=== PATIENT | female | born 1955 | race Two or more races ===

== ENCOUNTER → 2019-02-14 | Outpatient (CLI) | payer MEDICAID, MEDICARE ==
[2019-02-14 12:42] LABS: Basophils # (auto) 0 uL; Basophils % (auto) 0.5 % (0.0-2.0); Eosinophils # (auto) 0.2 uL; Hematocrit 38.2 % (36.0-46.0); Hemoglobin 12.8 g/dL (12.2-16.2); Lymphocytes # (auto) 2.9 uL; Lymphocytes % (auto) 47.6 % (10.0-50.0); Mean Corpuscular Hemoglobin 28.9 pg (28.0-32.0); Mean Corpuscular Hgb Conc. 33.4 g/dL (32.0-36.0); Mean Corpuscular Volume 86.6 fL (80.0-100.0); Monocytes # (auto) 0.4 uL; Monocytes % (auto) 5.8 % (0.0-12.0); Neutrophils # (auto) 2.6 uL; Neutrophils % (auto) 42.1 % (37.0-80.0); Nucleated Red Blood Cells % 0.1 %; Platelet Count (auto) 269 10^3/uL (140-450); Red Blood Cells 4.42 10^6/uL (4.0-5.20); White Blood Cell 6.1 10^3/uL (4.4-10.8)
[2019-02-14 13:00] LABS: Urine Bacteria FEW /hpf (None Seen); Urine Blood Negative /uL (Negative); Urine Mucus FEW (None Seen); Urine Specific Gravity 1.026 (1.001-1.035); Urine WBC 5 /hpf (0 - 5)
[2019-02-14 13:31] LABS: Albumin 3.6 g/dL (3.4-5.0); Potassium 3.8 mmol/L (3.5-5.1)
[2019-02-14 13:38] LABS: BUN/Creatinine Ratio 19.2; Bilirubin, Total 0.4 mg/dL (0.2-1.0); Calcium 8.9 mg/dL (8.5-10.1); Total Protein 7.4 g/dL (6.4-8.2)
== END | disposition home or self-care (01) ==
LOC: LAB 11:41
PROVIDERS: ATTEND Internal Medicine Nephrology
DX: I10 Essential (primary) hypertension (principal); G56.00 Carpal tunnel syndrome, unspecified upper limb; R79.89 Other specified abnormal findings of blood chemistry
CPT/HCPCS: 36415; 80053; 80061; 81001; 83036; 84439; 84443; 85025; 85652

== ENCOUNTER 2023-02-10 13:27 | Emergency (ER) | payer MEDICARE, MEDICAID ==
[~2023-02-10] VITALS: Ht 162.6 cm; Wt 92.4 kg
[2023-02-10 13:41] VITALS: BP 128/70; PULSE 74; RESP 18; TEMP 97.6; O2SAT 97
[2023-02-10 15:22] LABS: Basophils # (auto) 0 10 ^3/uL (0-0.2); Basophils % (auto) 0.4 % (0.0-2.0); Eosinophils # (auto) 0.2 10 ^3/uL (0-0.8); Eosinophils % (auto) 1.9 % (0.0-7.0); Hematocrit 42.3 % (36.0-46.0); Hemoglobin 13.8 g/dL (12.2-16.2); Lymphocytes % (auto) 30.8 % (10.0-50.0); Mean Corpuscular Hgb Conc. 32.7 g/dL (32.0-36.0); Mean Corpuscular Volume 85.7 fL (80.0-100.0); Monocytes # (auto) 0.5 10 ^3/uL (0-1.3); Neutrophils # (auto) 5.9 10 ^3/uL (1.6-8.6); Neutrophils % (auto) 61.9 % (37.0-80.0); Red Blood Cells 4.93 10^6/uL (4.0-5.20); Red Cell Distribution Width 16.7 % (11.8-14.3); White Blood Cell 9.6 10^3/uL (4.4-10.8)
[2023-02-10 15:40] LABS: Alanine Aminotransferase 15 U/L (7-40); Albumin 4.6 g/dL (3.2-4.8); Alkaline Phosphatase 104 U/L (46-116); Anion Gap 6.7 (5-15); Aspartate Aminotransferase 11 U/L (13-40); BUN/Creatinine Ratio 15.2 (10.0-20.0); Blood Urea Nitrogen 12 mg/dL (9-23); Calcium 9.9 mg/dL (8.5-10.1); Carbon Dioxide 24.3 mmol/L (20-30); Chloride 108 mmol/L (98-107); Glucose 101 mg/dL (74-106); Potassium 4.4 mmol/L (3.5-5.1); Sodium 139 mmol/L (136-145)
[2023-02-10 15:41] LABS: Bilirubin, Total 0.5 mg/dL (0.2-1.0); Total Protein 7.8 g/dL (5.7-8.2)
[2023-02-10] MEDS ORDERED: DexAMETHasone SOD PHOS 10MG/1ML VIAL INJ IM ONE (16:00)
[2023-02-10] MEDS ORDERED: GABA-1308 PO (16:00)
== END 2023-02-10 16:17 | disposition home or self-care (01) ==
LOC: ER 13:27
DX: S86.912A Strain of unspecified muscle(s) and tendon(s) at lower leg level, left leg, initial encounter (principal); I10 Essential (primary) hypertension; E78.5 Hyperlipidemia, unspecified; X58.XXXA Exposure to other specified factors, initial encounter; Y93.89 Activity, other specified; Y92.89 Other specified places as the place of occurrence of the external cause; Y99.8 Other external cause status
CPT/HCPCS: 36415; 80053; 83735; 85025; 93971; 96372; 99285; J1100

== ENCOUNTER 2024-04-26 07:00 | Inpatient (IN) | payer MEDICARE, MEDICAID ==
[~2024-04-26] VITALS: Ht 162.6 cm; Wt 93.2 kg
[~2024-04-26 07:00] MED LIST: GABA-1308 PO
--- NOTE | 2024-04-26 07:36 | ED.PDOC ---
History of Present Illness HPI Comments 68Y F with PMHx HTN and HLD presents to ED for chief complaint n/v/d x3days. Additional symptoms include epigastric abd pain, cough, fever, and poor appetite. Last emesis episode was 1hr ago and color was yellow. Pt states family at home were sick recently. Pt denies alcohol, tobacco, and illicit drug use. Pt was last seen at [facility] ER on 02/10/2023 for dx muscle strain, records reviewed. Time Seen by MD: 07:26 Primary Care Provider: Ander Reviewed Notes: Medications, Allergies Allergies: Coded Allergies: No Known Drug Allergy (Verified Allergy, Unknown, 02/10/23) Home Meds Active Scripts Gabapentin (Gabapentin) 100 Mg Cap, 1 CAP PO BID PRN for 10 Days, #30 CAP 0 Refills Prov:KATT SULLIVAN NP 02/10/23 Information Source: Patient Mode of Arrival: Ambulatory Severity: Moderate Timing: Days Duration: Since onset Past Medical History PAST MEDICAL HISTORY: High Lipids, HTN Surgical History: Denies all surgeries [employer]ESS[employer]INE[employer] History: Denies all [employer]INE[employer] Hx Family History Family History: Reviewed,noncontributory to illness Social History Smoker: Non-Smoker Alcohol: Denies ETOH Use Drugs: Denies Drug Use Lives In: Home Constitutional: reports: fever; denies: chills, diaphoresis, fatigue, malaise, sweats, weakness, others EENTM: denies: blurred vision, double vision, ear bleeding, ear discharge, ear drainage, ear pain, ear ringing, eye pain, eye redness, hearing loss, mouth pain, mouth swelling, nasal discharge, nose bleeding, nose congestion, nose pain, photophobia, tearing, throat pain, throat swelling, voice changes, others Respiratory: reports: cough; denies: hemoptysis, orthopnea, SOB at rest, shortness of breath, SOB with excertion, stridor, wheezing, others Cardiovascular: denies: chest pain, dizzy spells, diaphoresis, Dyspnea on exertion, edema, irregular heart beat, left arm pain, lightheadedness, palpitations, PND, syncope, others Gastrointestinal: reports: abdominal pain, diarrhea, nausea, poor appetite, vomiting; denies: abdomen distended, blood streaked bowels, constipated, dysphagia, difficulty swallowing, hematemesis, melena, poor fluid intake, rectal bleeding, rectal pain, others Genitourinary: denies: abnormal vagina bleeding, burning, dyspareunia, dysuria, flank pain, frequency, hematuria, incontinence, pain, , vagina discharge, urgency, others Neurological: denies: dizziness, fainting, headache, left sided numbness, left sided weakness, numbness, paresthesia, pre-existing deficit, right sided numbness, right sided weakness, seizure, speech problems, tingling, tremors, weakness, others Musculoskeletal: denies: back pain, gout, joint pain, joint swelling, muscle pain, muscle stiffness, neck pain, others Integumetry: denies: bruises, change in color, change in hair/nails, dryness, laceration, lesions, lumps, rash, wounds, others Allergic/Immunocompromised: denies: Difficulty Healing, Frequent Infections, Hives, Itching, others Hematologic/Lymphatic: denies: anemia, blood clots, easy bleeding, easy bruising, swollen glands, others Endocrine: denies: excessive hunger, excessive sweating, excessive thirst, excessive urination, flushing, intolerance to cold, intolerance to heat, unexplained weight gain, unexplained weight loss, others Psychiatric: denies: anxiety, bipolar disorder, depression, hopeless, panic disorder, schizophrenia, sleepless, suicidal, others All Other Systems: Reviewed and Negative Physical Exam General Appearance: Mild Distress HEENT: Normal ENT Inspection, Pharynx Normal, TMs Normal Neck: Full Range of Motion, Non-Tender, Normal, Normal Inspection Respiratory: Chest Non-Tender, Lungs Clear, No Accessory Muscle Use, No Respiratory Distress, Normal Breath Sounds Cardiovascular: No Edema, No JVD, No Murmur, No Gallop, Normal Peripheral Pulses, Regular Rate/Rhythm Breast Exam: Deferred Gastrointestinal: Epigastric, Tenderness Genitalia: Deferred Pelvic: Deferred Rectal: Deferred Extremities: No calf tenderness, Normal capillary refill, Normal inspection, Normal range of motion, Non-tender, No pedal edema Musculoskeletal : Apperance: Normal Neurologic: Alert, android platform developer II-XII nml as Tested, No Motor Deficits, Normal Affect, Normal Mood, No Sensory Deficits Cerebellar Function: Normal Reflexes: Normal Skin: Dry, Normal Color, Warm Lymphatic: No Adenopathy Was a procedure done? Was a procedure done?: No Differential Dx Considerations may include: pneumonia, bronchitis, covid, influenza, electrolyte disorders, hypoglycemia, hypotension, failure to thrive. generalized weakness X-Ray, Labs, Meds, VS Vital Signs Date Time Temp Pulse Resp B/P (MAP) Pulse Ox O2 Delivery O2 Flow Rate FiO2 04/26/24 08:50 99.4 86 16 153/67 (95) 95 99.4 04/26/24 08:50 86 16 95 Room Air 04/26/24 07:44 98.3 91 19 138/57 (84) 97 Lab Test 04/26/24 07:43 Range/Units White Blood Count 12.9 H 4.4-10.8 10^3/uL Red Blood Count 4.58 4.0-5.20 10^6/uL Hemoglobin 12.9 12.2-16.2 g/dL Hematocrit 38.6 36.0-46.0 % Mean Corpuscular Volume 84.3 80.0-100.0 fL Mean Corpuscular Hemoglobin 28.1 28.0-32.0 pg Mean Corpuscular Hemoglobin Concent 33.3 32.0-36.0 g/dL Red Cell Distribution Width 16.7 H 11.8-14.3 % Platelet Count 255 140-450 10^3/uL Mean Platelet Volume 8.2 6.9-10.8 fL Neutrophils (%) (Auto) 86.8 H 37.0-80.0 % Lymphocytes (%) (Auto) 9.6 L 10.0-50.0 % Monocytes (%) (Auto) 3.1 0.0-12.0 % Eosinophils (%) (Auto) 0.1 0.0-7.0 % Basophils (%) (Auto) 0.4 0.0-2.0 % Neutrophils # (Auto) 11.2 H 1.6-8.6 10 ^3/uL Lymphocytes # (Auto) 1.2 0.4-5.4 10 ^3/uL Monocytes # (Auto) 0.4 0-1.3 10 ^3/uL Eosinophils # (Auto) 0 0-0.8 10 ^3/uL Basophils # (Auto) 0 0-0.2 10 ^3/uL Nucleated Red Blood Cells 0.0 % Sodium Level 140 136-145 mmol/L Potassium Level 3.2 L 3.5-5.1 mmol/L Chloride Level 106 98-107 mmol/L Carbon Dioxide Level 25 20-31 mmol/L Anion Gap 9 5-15 Blood Urea Nitrogen 12 9-23 mg/dL Creatinine 0.84 0.550-1.02 mg/dL Glomerular Filtration Rate Calc 75 >90 mL/min BUN/Creatinine Ratio 14.3 10.0-20.0 Serum Glucose 120 H 74-106 mg/dL Calcium Level 9.4 8.7-10.4 mg/dL Total Bilirubin 0.5 0.2-1.0 mg/dL Aspartate Amino Transferase (AST) 33 13-40 U/L Alanine Aminotransferase (ALT) 24 7-40 U/L Alkaline Phosphatase 97 46-116 U/L Total Protein 7.4 5.7-8.2 g/dL Albumin 4.4 3.2-4.8 g/dL Lipase Pending Current Medications Medications (Trade) Dose Ordered Sig/Maryan Route Start Time Stop Time Status Last Admin Ondansetron HCl (Zofran Po) 4 mg ONCE ONCE PO 04/26/24 07:30 04/26/24 07:31 DC 04/26/24 08:49 [place] [address] Ph: [phone] DIAGNOSTIC IMAGING Diagnostic Imaging Report : [id number] Signed PATIENT: SERGEY LUX ACCT: [id number] UNIT: [id number] : 1955 LOC: ER ROOM / BED: / AGE / SEX: 68 / F ADM STATUS: REG ER SERVICE 9 ORDERING PHYSICIAN: SURESH KING MD PROCEDURE(s): CXRP - CHEST PORTABLE REASON: cough ORDER NUMBER(s): [id number], ACCESSION NUMBER(s): [id number] CHEST RADIOGRAPH Indication: cough Technique: Single frontal view of the chest was obtained COMPARISON: None FINDINGS: Lines and Tubes: None Lungs: Patchy increased interstitial prominence. Pleura: No effusion. No pneumothorax. Cardiomediastinal contours: Unremarkable Bones: Unremarkable IMPRESSION: Pulmonary vascular congestion versus viral pneumonitis. ATED BY: NAVARRO HOLDEN MD DICTATED DATE/TIME: 04/26/24 08 SIGNED BY: NAVARRO HOLDEN MD SIGNED DATE/TIME: 04/26/24810 CC: [address] [address] Ph: [phone] DIAGNOSTIC IMAGING Diagnostic Imaging Report : [id number] Signed PATIENT: SERGEY LUX ACCT: [id number] UNIT: [id number] : 1955 LOC: ER ROOM / BED: / AGE / SEX: 68 / F ADM STATUS: REG ER SERVICE 9 ORDERING PHYSICIAN: SURESH KING MD PROCEDURE(s): KUB - KUB ABDOMEN SINGLE VIEW REASON: pain ORDER NUMBER(s): [id number], ACCESSION NUMBER(s): [id number] Exam: XY KUB ABDOMEN SINGLE VIEW Indication: pain Comparison: None Technique: 2 radiographic views of the abdomen. Findings: Nonobstructive bowel gas pattern noted. There is no definite evidence for pneumoperitoneum. No abnormal calcifications noted. Impression: Nonobstructive bowel gas pattern noted. ATED BY: NAVARRO HOLDEN MD DICTATED DATE/TIME: 04/26/24810 SIGNED BY: NAVARRO HOLDEN MD SIGNED DATE/TIME: 04/26/24810 CC: Time of 1ST Reevaluation: 07:56 Reevaluation 1ST: Unchanged Time of 2ND Reevaluation: 09:07 Reevaluation 2ND: Unchanged Patient Education/Counseling: Diagnosis, Treatment, Prognosis, Need For Follow Up Family Education/Counseling: No Family Present Additional Information Tests ordered and results reviewed: CBC, CMP, KUB, CXR Independent historians include: None. Dr. King interpreted each of the tests and agrees with the result. Results and treatment discussed with the pt/family members, medical personnel, and hospitalist. all test results suggests a viral pneumonitis, however, on reassessment, pt reports that she is profoundly weak and is uncomfortable to go home. with her advanced age, and overall weakened state, due to ta viral pneumonitis, i added covid and influenza tests and will consult hospitalist to admit her for profound weakness, due to viral pneumonitis Departure 1 Departure Time of Disposition: 09:10 Impression: Primary Impression: Generalized weakness Additional Impression: Viral pneumonitis Disposition: ADMITTED INPATIENT Admit to: Med Surg Condition: Fair Critical Care Note Critical Care Time?: No Stability Stability form required: No I personally scribed for SURESH KING MD ([facility]) on 04/26/24 at 07:36. Electronically submitted by Eve Buitrago ([facility]). I personally scribed for SURESH KING MD ([facility]) on 04/26/24 at 08:16. Electronically submitted by Eve Buitrago ([facility]). I personally scribed for SURESH KING MD ([facility]) on 04/26/24 at 08:57. Electronically submitted by Eve Buitrago ([facility]). SURESH KING MD Apr 26, 2024 07:36
[2024-04-26 08:04] LABS: Basophils # (auto) 0 10 ^3/uL (0-0.2); Basophils % (auto) 0.4 % (0.0-2.0); Eosinophils # (auto) 0 10 ^3/uL (0-0.8); Eosinophils % (auto) 0.1 % (0.0-7.0); Hematocrit 38.6 % (36.0-46.0); Hemoglobin 12.9 g/dL (12.2-16.2); Lymphocytes # (auto) 1.2 10 ^3/uL (0.4-5.4); Lymphocytes % (auto) 9.6 % (10.0-50.0); Mean Corpuscular Hemoglobin 28.1 pg (28.0-32.0); Mean Corpuscular Hgb Conc. 33.3 g/dL (32.0-36.0); Mean Corpuscular Volume 84.3 fL (80.0-100.0); Monocytes # (auto) 0.4 10 ^3/uL (0-1.3); Monocytes % (auto) 3.1 % (0.0-12.0); Neutrophils # (auto) 11.2 10 ^3/uL (1.6-8.6); Neutrophils % (auto) 86.8 % (37.0-80.0); Platelet Count (auto) 255 10^3/uL (140-450); Red Blood Cells 4.58 10^6/uL (4.0-5.20); Red Cell Distribution Width 16.7 % (11.8-14.3); White Blood Cell 12.9 10^3/uL (4.4-10.8)
--- NOTE | 2024-04-26 08:15 | DVH ---
Exam: XY KUB ABDOMEN SINGLE VIEW Indication: pain Comparison: None Technique: 2 radiographic views of the abdomen. Findings: Nonobstructive bowel gas pattern noted. There is no definite evidence for pneumoperitoneum. No abnormal calcifications noted. Impression: Nonobstructive bowel gas pattern noted.
--- NOTE | 2024-04-26 08:15 | DVH ---
CHEST RADIOGRAPH Indication: cough Technique: Single frontal view of the chest was obtained COMPARISON: None FINDINGS: Lines and Tubes: None Lungs: Patchy increased interstitial prominence. Pleura: No effusion. No pneumothorax. Cardiomediastinal contours: Unremarkable Bones: Unremarkable IMPRESSION: Pulmonary vascular congestion versus viral pneumonitis.
[2024-04-26 08:22] LABS: Alanine Aminotransferase 24 U/L (7-40); Albumin 4.4 g/dL (3.2-4.8); Alkaline Phosphatase 97 U/L (46-116); Anion Gap 9 (5-15); Aspartate Aminotransferase 33 U/L (13-40); BUN/Creatinine Ratio 14.3 (10.0-20.0); Bilirubin, Total 0.5 mg/dL (0.2-1.0); Blood Urea Nitrogen 12 mg/dL (9-23); Calcium 9.4 mg/dL (8.7-10.4); Carbon Dioxide 25 mmol/L (20-31); Chloride 106 mmol/L (98-107); Glucose 120 mg/dL (74-106); Potassium 3.2 mmol/L (3.5-5.1); Sodium 140 mmol/L (136-145); Total Protein 7.4 g/dL (5.7-8.2)
[2024-04-26] MEDS: ONDANSETRON ODT 4 MG TAB PO ONE (08:49)
[2024-04-26 09:05] LABS: Lipase 33 U/L (12-53)
[2024-04-26] MEDS: POTASSIUM CHL 20 Meq TABLET PO ONE (09:14)
[2024-04-26 09:20] VITALS: RESP 16; O2SAT 95
[2024-04-26 10:20] LABS: COVID19 ANTIGEN SOFIA FIA NEGATIVE (NEGATIVE)
[2024-04-26 10:24] LABS: Rapid Influenza A Positive (Negative); Rapid Influenza B Negative (Negative)
[2024-04-26] MEDS ORDERED: DOCUSATE SOD 100 MG CAP PO PRN (11:00)
[2024-04-26] MEDS ORDERED: ACETAMINOPHEN 325 MG TAB PO PRN (11:00)
[2024-04-26] MEDS ORDERED: OSELTAMIVIR 75 MG CAP PO SCH (11:00)
[2024-04-26] MEDS ORDERED: ALBUTEROL SULF 2.5 MG/0.5ML(0.5%) NEB SOLN NEB PRN (11:00)
[2024-04-26] MEDS ORDERED: IPRATROPIUM BROM 0.5 MG/2.5ML INH SOL NEB PRN (11:00)
[2024-04-26] MEDS ORDERED: MORPHINE SULFATE INJ 2 MG/ml SYRG IV PRN (11:00)
[2024-04-26] MEDS ORDERED: HYDROcodone-ACET 5/325MG TAB PO PRN (11:00)
[2024-04-26] MEDS ORDERED: MAALOX PLUS or MAALOX 30 ML PO PRN (11:00)
[2024-04-26] MEDS: predniSONE 20 MG TAB ONE (11:58)
[2024-04-26] MEDS: OSELTAMIVIR 75 MG CAP PO ONE (11:59)
[2024-04-26] MEDS: predniSONE 20 MG TAB PO SCH (12:00)
[2024-04-26] MEDS: OSELTAMIVIR 75 MG CAP PO SCH (12:00)
[2024-04-26 16:10] VITALS: BP 140/57; PULSE 79; RESP 18; TEMP 98.6; O2SAT 92
[2024-04-26 17:28] VITALS: BP 140/57; PULSE 79; RESP 18; TEMP 98.6; O2SAT 92
[2024-04-26 20:48] VITALS: BP 112/55; PULSE 84; RESP 20; TEMP 98.9; O2SAT 94
[2024-04-26 23:39] VITALS: BP 158/64; PULSE 71; RESP 17; TEMP 98.5; O2SAT 91
[2024-04-26] MEDS: ONDANSETRON HCL 4 MG/2 ML VIAL IV PRN (23:57)
[2024-04-27] VITALS (11 sets, daily range): BP systolic 146–163; BP diastolic 50–75; PULSE 60–73; RESP 16–19; TEMP 98–98.7; O2SAT 87–98
[2024-04-27 07:03] LABS: Basophils # (auto) 0.1 10 ^3/uL (0-0.2); Basophils % (auto) 0.7 % (0.0-2.0); Eosinophils # (auto) 0 10 ^3/uL (0-0.8); Hematocrit 36.1 % (36.0-46.0); Hemoglobin 12.1 g/dL (12.2-16.2); Lymphocytes # (auto) 2.7 10 ^3/uL (0.4-5.4); Lymphocytes % (auto) 32.4 % (10.0-50.0); Mean Corpuscular Hemoglobin 28.6 pg (28.0-32.0); Mean Corpuscular Hgb Conc. 33.5 g/dL (32.0-36.0); Mean Corpuscular Volume 85.4 fL (80.0-100.0); Monocytes # (auto) 0.6 10 ^3/uL (0-1.3); Monocytes % (auto) 6.8 % (0.0-12.0); Neutrophils % (auto) 60.1 % (37.0-80.0); Nucleated Red Blood Cells % 0.1 %; Platelet Count (auto) 237 10^3/uL (140-450); Red Blood Cells 4.22 10^6/uL (4.0-5.20); Red Cell Distribution Width 16.6 % (11.8-14.3); White Blood Cell 8.4 10^3/uL (4.4-10.8)
[2024-04-27 07:17] LABS: Anion Gap 10 (5-15); Carbon Dioxide 25 mmol/L (20-31); Chloride 108 mmol/L (98-107); Potassium 3.5 mmol/L (3.5-5.1); Sodium 143 mmol/L (136-145)
[2024-04-27 07:19] LABS: Calcium 9.5 mg/dL (8.7-10.4)
[2024-04-27 07:24] LABS: BUN/Creatinine Ratio 15.6 (10.0-20.0); Blood Urea Nitrogen 14 mg/dL (9-23); Glucose 110 mg/dL (74-106)
[2024-04-27] MEDS ORDERED: IPRATROPIUM BROM 0.5 MG/2.5ML INH SOL NEB SCH (10:00)
[2024-04-27] MEDS: POTASSIUM CHL 20 Meq TABLET PO SCH (10:36)
[2024-04-27] MEDS ORDERED: ALBUTEROL SULF 2.5 MG/0.5ML(0.5%) NEB SOLN NEB SCH (12:00)
--- NOTE | 2024-04-27 12:03 | DVH ---
INDICATION: abdominal pain TECHNIQUE: Multiple real-time sonographic images were obtained of the right upper quadrant. COMPARISON: None FINDINGS: The liver demonstrates heterogeneous echotexture without focal mass lesions. The liver rosemary sures 18 cm. There is no intrahepatic or extrahepatic ductal dilatation. The common duct measures 0.4 cm. The gallbladder is without evidence of stone or sludge. The gallbladder wall measures 0.2 cm and is within normal limits. The right kidney measures 9.6 cm. The right kidney is normal in contour, size, and shape. The echog enicity is normal. There is no hydronephrosis. The pancreas is not well visualized due to overlying bowel gas. IMPRESSION: Hepatomegaly.
--- NOTE | 2024-04-27 13:15 | DVHHP2 ---
History of Present Illness Reason for Visit: shortness of breath History of Present Illness Late Entry date 04/26/24 68 obese patient came to the ed for evaluation for weakness and shortness of breath and difficulty breathing evaluated in the ed with signs of respiratory distress and recommended for admission Cardiovascular: CAD, HTN Pulmonary: Pneumonia Review of Systems Constitutional: Yes: Fever, Weakness Eyes: No: Pain, Vision change, Conjunctivae inflammation, Eyelid inflammation, Other, Redness ENT: No: Ear pain, Ear discharge, Nose pain, Nose discharge, Nose congestion, Mouth pain, Mouth swelling, Throat pain, Throat swelling, Other Respiratory: Cough, Shortness of breath; No: Dry, SOB with excertion, Wheezing, Hemoptysis, Pleuritic Pain, Sputum, Wheezing, Other Cardiovascular: Chest Pain, Palpitations; No: Orthopnea, Paroxysmal Noc. Dyspnea, Edema, Lt Headedness, Other Gastrointestinal: No: Nausea, Vomiting, Abdominal Pain, Diarrhea, Constipation, Melena, Hematochezia, Other Genitourinary: No Dysuria, No Frequency, No Incontinence, No Hematuria, No Rete ntion, No Other Musculoskeletal: No: other, neck pain, shoulder pain, arm pain, back pain, hand pain, leg pain, foot pain Skin: No: Rash, Lesions, Jaundice, Bruising, Other Neurological: Weakness; No: Numbness, Incoordination, Change in speech, Confusion, Seizures, Other Allergies: Coded Allergies: No Known Drug Allergy (Verified Allergy, Unknown, 02/10/23) Medications Current Medications Medications Dose Ordered Sig/Maryan Route Start Time Stop Time Status Last Admin Dose Admin Albuterol 2.5 mg Q4HWA PRN NEB 04/26/24 11:00 Cancel Ipratropium [place] 0.5 mg Q4HWA PRN NEB 04/26/24 11:00 Cancel Potassium Chloride 20 meq DAILY PO 04/27/24 10:00 04/27/24 10:36 20 MEQ Al Hydrox/Mg Hydrox/Simethicone 30 ml Q6HP PRN PO 04/26/24 11:00 Docusate Sodium 100 mg BIDPRN PRN PO 04/26/24 11:00 Acetaminophen 650 mg Q6HP PRN PO 04/26/24 11:00 Ondansetron HCl 4 mg Q4HP PRN IV 04/26/24 11:00 04/26/24 23:57 4 MG Oseltamivir Phosphate 75 mg BID PO 04/26/24 11:49 04/30/24 22:01 04/27/24 10:36 75 MG Acetylcysteine 200 mg Q8HR NEB 04/27/24 14:00 Acetaminophen 1,000 mg TID PO 04/27/24 14:00 UNV Exam Vital Signs Vital Signs Date Time Temp Pulse Resp B/P (MAP) Pulse Ox O2 Delivery O2 Flow Rate FiO2 04/27/24 09:00 98.4 60 18 153/58 (89) 92 98.4 04/27/24 08:00 Room Air* 0 21 General Appearance: Alert, Oriented X3 HEENT: Atraumatic, PERRLA Respiratory: Clear to auscultation, Normal air movement Cardiovascular: Regular rate, Normal S1, Normal S2 Abdominal: Normal bowel sounds, Soft Extremities: No clubbing, No cyanosis, No edema Skin: No rashes, No breakdown Neuro: Normal speech Psych/Mental Status: Mood NL Labs/Xrays Labs Test 04/27/24 06:36 04/26/24 09:18 04/26/24 07:43 Range/Units White Blood Count 8.4 # 4.4-10.8 10^3/uL Red Blood Count 4.22 4.0-5.20 10^6/uL Hemoglobin 12.1 L 12.2-16.2 g/dL Hematocrit 36.1 36.0-46.0 % Mean Corpuscular Volume 85.4 80.0-100.0 fL Mean Corpuscular Hemoglobin 28.6 28.0-32.0 pg Mean Corpuscular Hemoglobin Concent 33.5 32.0-36.0 g/dL Red Cell Distribution Width 16.6 H 11.8-14.3 % Platelet Count 237 140-450 10^3/uL Mean Platelet Volume 8.5 6.9-10.8 fL Neutrophils (%) (Auto) 60.1 37.0-80.0 % Lymphocytes (%) (Auto) 32.4 10.0-50.0 % Monocytes (%) (Auto) 6.8 0.0-12.0 % Eosinophils (%) (Auto) 0.0 0.0-7.0 % Basophils (%) (Auto) 0.7 0.0-2.0 % Neutrophils # (Auto) 5.0 1.6-8.6 10 ^3/uL Lymphocytes # (Auto) 2.7 0.4-5.4 10 ^3/uL Monocytes # (Auto) 0.6 0-1.3 10 ^3/uL Eosinophils # (Auto) 0 0-0.8 10 ^3/uL Basophils # (Auto) 0.1 0-0.2 10 ^3/uL Nucleated Red Blood Cells 0.1 % Sodium Level 143 136-145 mmol/L Potassium Level 3.5 3.5-5.1 mmol/L Chloride Level 108 H 98-107 mmol/L Carbon Dioxide Level 25 20-31 mmol/L Anion Gap 10 5-15 Blood Urea Nitrogen 14 9-23 mg/dL Creatinine 0.90 0.550-1.02 mg/dL Glomerular Filtration Rate Calc 69 >90 mL/min BUN/Creatinine Ratio 15.6 10.0-20.0 Serum Glucose 110 H 74-106 mg/dL Calcium Level 9.5 8.7-10.4 mg/dL Influenza Type A Antigen Positive Negative Influenza Type B Antigen Negative Negative SARS-CoV-2 Antigen (Rapid) Negative NEGATIVE Total Bilirubin 0.5 0.2-1.0 mg/dL Aspartate Amino Transferase (AST) 33 13-40 U/L Alanine Aminotransferase (ALT) 24 7-40 U/L Alkaline Phosphatase 97 46-116 U/L Total Protein 7.4 5.7-8.2 g/dL Albumin 4.4 3.2-4.8 g/dL Lipase 33 12-53 U/L Assessment/Plan Assessment/Plan Admit Med/Surge Pna suspected secondary to Flu Flu A positive PNA viral prn breathing treatments albuterol ipratropium daily tamiflu o2 support Plan discussed with: Patient Problem List: (1) Muscle strain (2) Generalized weakness (3) Viral pneumonitis Date of Service: Apr 26, 2024 Billing Provider: NAKIA LEUNG MD Common Visit Codes: [id number] INP/OBS CARE (HIGH) NAKIA LEUNG MD Apr 27, 2024 13:15
[2024-04-27] MEDS ORDERED: ACETYLCYSTEINE 20%(200MG/ML) SOL 4ML NEB SCH (14:00)
[2024-04-27] MEDS: ACETAMINOPHEN 500 MG TAB PO SCH (14:00)
--- NOTE | 2024-04-27 14:08 | DVHPNRES ---
Progress Note Date Seen: Apr 27, 2024 Resident Creating Document: DANA POE RESIDENT Has the PT tested + for MRSA If YES, has PT been informed?: No Medical Necessity Reason Pt with a Central, PICC or Fol: No Subjective Review of Systems 68-year-old with past medical history of hypertension and hyperlipidemia came to ED for 3 days of nausea and epigastric pain, patient states also that right now the chief complaint is cough, patient had fever poor appetite and weakness. Patient states that everyone in her house are sick Objective vital signs Vital Sign Date Time Temp Pulse Resp B/P (MAP) Pulse Ox O2 Delivery O2 Flow Rate FiO2 04/27/24 09:00 98.4 60 18 153/58 (89) 92 98.4 04/27/24 08:00 Room Air* 0 21 Total Intake and Output 04/26/24 04/26/24 04/27/24 14:59 22:59 06:59 Intake Total 200 ml Balance 200 ml medications Current Medications Medications Dose Ordered Sig/Maryan Route Start Time Stop Time Status Last Admin Dose Admin Albuterol 2.5 mg Q4HWA PRN NEB 04/26/24 11:00 Cancel Ipratropium [place] 0.5 mg Q4HWA PRN NEB 04/26/24 11:00 Cancel Potassium Chloride 20 meq DAILY PO 04/27/24 10:00 04/27/24 10:36 20 MEQ Al Hydrox/Mg Hydrox/Simethicone 30 ml Q6HP PRN PO 04/26/24 11:00 Docusate Sodium 100 mg BIDPRN PRN PO 04/26/24 11:00 Acetaminophen 650 mg Q6HP PRN PO 04/26/24 11:00 Hold Ondansetron HCl 4 mg Q4HP PRN IV 04/26/24 11:00 04/26/24 23:57 4 MG Oseltamivir Phosphate 75 mg BID PO 04/26/24 11:49 04/30/24 22:01 04/27/24 10:36 75 MG Acetylcysteine 200 mg Q8HR NEB 04/27/24 14:00 Acetaminophen 1,000 mg TID PO 04/27/24 14:00 Examination GEN: Healthy appearing, well-developed, NAD. PSYCH: Good Judgment. AOx3. Normal memory, mood, and affect. HEENT -Head: normocephalic atraumatic, no facial trauma, neck is supple -Eyes: PERRL, EOMI. No discharge or redness; -Ears: External ears are normal. Normal TMs. -Nose: Normal nares. -Mouth and throat: MMM. Normal gums, mucosa, palate,. Good dentition. NECK: Supple, with no masses. CV: RRR, no m/r/g. LUNGS: respiratory effort normal, speaks in full sentences, no tripod position, no accessory muscle use. Lungs clear to auscultation without rhonchi, wheezes, rales ABD: Soft, ND/NT. No evidence of fluid wave. No pulsatile masses on exam, rebound tenderness, Dwyer sign or pain over Mcburney's point. : N/A SKIN: Warm, well perfused. No skin rashes or abnormal lesions. MSK: No deformities or signs of scoliosis. Normal gait. EXT: No clubbing, cyanosis, or edema. NEURO: Ambulating with no limitations. Normal muscle strength and tone. No focal deficits. laboratory and microbiology Laboratory Tests 04/27/24 06:36 Test 04/27/24 06:36 Range/Units Serum Glucose 110 H 74-106 mg/dL Problem List/Assessment/Plan Problem List/Assessment/Plan Viral pneumonitis due to influenza type A Hypertension Hyperlipidemia Plan: Tamiflu Tylenol maryan Mucomyst Stop steroids due to influenza + Case discussed with Dr Quintero Time spent on care 23 min Plan discussed with: Patient, Other (rn) My Orders My Orders Orders - DANA POE Procedure Category Date Status Time [facility] US 04/27/24 Resulted 07:31 Acetylcysteine PHA 04/27/24 In Process Inhalation 20% 14:00 Acetaminophen Tablet PHA 04/27/24 In Process (Tylenol Tablet) 14:00 Date of Service: Apr 27, 2024 Billing Provider: ELIO QUINTERO MD Common Visit Codes: [id number] INP/OBS CARE(HIGH) DANA POE Apr 27, 2024 14:08 ELIO QUINTERO MD Apr 27, 2024 21:27
[2024-04-27] MEDS: ACETYLCYSTEINE 20%(200MG/ML) SOL 4ML NEB SCH (21:37)
[2024-04-27] MEDS: ALBUTEROL SULF 2.5 MG/0.5ML(0.5%) NEB SOLN NEB PRN (21:37)
[2024-04-28] VITALS (8 sets, daily range): BP systolic 134–165; BP diastolic 58–73; PULSE 64–84; RESP 17–20; TEMP 98.3–99; O2SAT 93–99
[2024-04-28] MEDS: NIFEdipine ER 30 MG TAB PO SCH (09:26)
[2024-04-28] MEDS ORDERED: NIFE1TAB31 PO (12:28)
--- NOTE | 2024-04-28 14:57 | DVHDSRES ---
Discharge Summary Date of Admission Resident Creating Document: DANA POE RESIDENT Apr 26, 2024 at 10:57 Date of Discharge: Apr 28, 2024 Labs/Diagnostic Data: Laboratory Results Test 04/27/24 06:36 04/26/24 09:18 04/26/24 07:43 White Blood Count 8.4 10^3/uL (4.4-10.8) Red Blood Count 4.22 10^6/uL (4.0-5.20) Hemoglobin 12.1 g/dL (12.2-16.2) Hematocrit 36.1 % (36.0-46.0) Mean Corpuscular Volume 85.4 fL (80.0-100.0) Mean Corpuscular Hemoglobin 28.6 pg (28.0-32.0) Mean Corpuscular Hemoglobin Concent 33.5 g/dL (32.0-36.0) Red Cell Distribution Width 16.6 % (11.8-14.3) Platelet Count 237 10^3/uL (140-450) Mean Platelet Volume 8.5 fL (6.9-10.8) Neutrophils (%) (Auto) 60.1 % (37.0-80.0) Lymphocytes (%) (Auto) 32.4 % (10.0-50.0) Monocytes (%) (Auto) 6.8 % (0.0-12.0) Eosinophils (%) (Auto) 0.0 % (0.0-7.0) Basophils (%) (Auto) 0.7 % (0.0-2.0) Neutrophils # (Auto) 5.0 10 ^3/uL (1.6-8.6) Lymphocytes # (Auto) 2.7 10 ^3/uL (0.4-5.4) Monocytes # (Auto) 0.6 10 ^3/uL (0-1.3) Eosinophils # (Auto) 0 10 ^3/uL (0-0.8) Basophils # (Auto) 0.1 10 ^3/uL (0-0.2) Nucleated Red Blood Cells 0.1 % Sodium Level 143 mmol/L (136-145) Potassium Level 3.5 mmol/L (3.5-5.1) Chloride Level 108 mmol/L (98-107) Carbon Dioxide Level 25 mmol/L (20-31) Anion Gap 10 (5-15) Blood Urea Nitrogen 14 mg/dL (9-23) Creatinine 0.90 mg/dL (0.550-1.02) Glomerular Filtration Rate Calc 69 mL/min (>90) BUN/Creatinine Ratio 15.6 (10.0-20.0) Serum Glucose 110 mg/dL (74-106) Calcium Level 9.5 mg/dL (8.7-10.4) Influenza Type A Antigen Positive (Negative) Influenza Type B Antigen Negative (Negative) SARS-CoV-2 Antigen (Rapid) Negative (NEGATIVE) Total Bilirubin 0.5 mg/dL (0.2-1.0) Aspartate Amino Transferase (AST) 33 U/L (13-40) Alanine Aminotransferase (ALT) 24 U/L (7-40) Alkaline Phosphatase 97 U/L (46-116) Total Protein 7.4 g/dL (5.7-8.2) Albumin 4.4 g/dL (3.2-4.8) Lipase 33 U/L (12-53) Other Laboratory Tests 04/27/24 06:36 Brief Hx & Hospital Course: A 68-year-old female with a history of hypertension and hyperlipidemia presented with a three-day history of nausea, epigastric pain, and cough, along with fever, poor appetite, and weakness. She reported that everyone in her household was sick. Evaluation revealed influenza type A with associated viral pneumonitis, confirmed by clinical presentation and laboratory findings. The patient denied shortness of breath or oxygen requirements during hospitalization. Initial management included Tamiflu, acetaminophen for fever control, and mucolytics for symptomatic relief. Steroids were discontinued due to the confirmed influenza diagnosis. The patient improved clinically during her hospital stay, with resolution of fever and improvement in appetite and energy levels. She was discharged in stable condition with instructions to continue Tamiflu for three more days and symptomatic treatment as needed. She was advised to follow up with her primary care physician and to return to the emergency department if symptoms such as shortness of breath, persistent fever, or worsening weakness occurred. Case discussed with Dr Quintero Time spent on care 23 min Operations or Procedures INDICATION: abdominal pain TECHNIQUE: Multiple real-time sonographic images were obtained of the right upper quadrant. COMPARISON: None FINDINGS: The liver demonstrates heterogeneous echotexture without focal mass lesions. The liver measures 18 cm. There is no intrahepatic or extrahepatic ductal dilatation. The common duct measures 0.4 cm. The gallbladder is without evidence of stone or sludge. The gallbladder wall measures 0.2 cm and is within normal limits. The right kidney measures 9.6 cm. The right kidney is normal in contour, size, and shape. The echogenicity is normal. There is no hydronephrosis. The pancreas is not well visualized due to overlying bowel gas. IMPRESSION: Hepatomegaly. Condition at Discharge: Stable Final Diagnosis/Problems List Viral pneumonitis due to influenza type A Hypertension Hyperlipidemia Hepatomegaly Discharge Disposition: Home Discharge Instruct/Medications Diet: Consistent carbohydrate, Cardiac 2g Na,low cholest Activity: Light activity Follow Up/Referral: fu with pcp 7 days Medications: see prescription Discharge Statement: "Patient was advised to return to the ER or call 911 if any headaches, dizziness, shortness of breath, chest pain, abdominal pain, bleeding, fevers, or worsening of medical condition. Patient was counseled about treatment plan, medications, possible side effects, patientverbalized understanding. All questions were answered to the best of my ability. This discharge took greater then 30 minutes in planning, reviewing documentation, counseling the patient, and discussing with other team members." ASSESSMENT ASSESSMENT Assessment viral pneumonitis due to influenza type A Date of Service: Apr 29, 2024 Billing Provider: ELIO QUINTERO MD Common Visit Codes: 53808-KVR/OBS DISCH DAY >30min DANA POE RESIDENT Apr 28, 2024 14:56 ELIO QUINTERO MD Apr 30, 2024 08:13
[2024-04-28] MEDS ORDERED: TAMIF30 PO (15:44)
== END 2024-04-28 17:20 | disposition home or self-care (01) | DRG 195 ==
LOC: ER 07:00 → OVERFLOW 10:57 → EAST 23:15
PROVIDERS: ADMIT Student in an Organized Health Care Education/Training Program; ATTEND Student in an Organized Health Care Education/Training Program
DX: J10.08 Influenza due to other identified influenza virus with other specified pneumonia (principal); J12.9 Viral pneumonia, unspecified; I10 Essential (primary) hypertension; Z20.822 Contact with and (suspected) exposure to COVID-19; I25.10 Atherosclerotic heart disease of native coronary artery without angina pectoris; E78.5 Hyperlipidemia, unspecified
CPT/HCPCS: 36415; 71045; 74018; 76705; 80048; 80053; 83690; 85025; 87426; 87804; 94640; G0378; J2405; Q0162